=== PATIENT | male | born 1985 | race Caucasian/White ===

== ENCOUNTER 2018-07-16 02:13 | Inpatient (IN) | payer MEDICAID ==
[~2018-07-16] VITALS: Ht 170.2 cm; Wt 80.7 kg
--- NOTE | 2018-07-16 02:13 | NUR ---
BILATERAL LOWER BACK PAIN W/ TESTICULAR SWELLING, PAIN, GROIN PAIN X COUPLE OF DAYS, DENIES HEMATURIA. PATIENT IS TACHYCARDIC BUT OTHERWISE VSS NO ACUTE DISTRESS NOTED AT THIS TIME. PT IS ALERT AND ORIENTED X4 ABLE TO MAKE NEEDS KNOWN. SKIN WARM AND INTACT. WILL CONTINUE TO MONITOR FOR ANY CHANGES DURING THE SHIFT.
--- NOTE | 2018-07-16 02:14 | NUR ---
ER MD SPEARS AT BEDSIDE FOR EVAL
[2018-07-16] MEDS ORDERED: ONDANSETRON HCL/PF 4 MG/2 ML VIAL ONE (02:46)
[2018-07-16] MEDS ORDERED: MORPHINE SULFATE INJ 4 MG/ML DISP.SYRIN ONE (02:46)
[2018-07-16 02:52] LABS: BASOPHILS # (AUTO) 0.1 /CMM (0.0-0.2); BASOPHILS % (AUTO) 0.7 % (0.0-2.0); EOSINOPHILS % (AUTO) 4.7 % (0.0-6.0); HEMATOCRIT 40 % (39-51); HEMOGLOBIN 12.8 g/dL (13.5-17.5); LYMPHOCYTES # (AUTO) 2.1 /CMM (0.8-4.8); LYMPHOCYTES % (AUTO) 23.7 % (20.0-44.0); MEAN CORPUSCULAR HGB CONC 32 g/dl (31.0-36.0); MEAN CORPUSCULAR VOLUME 86 fL (80-96); MONOCYTES # (AUTO) 0.7 /CMM (0.1-1.30); MONOCYTES % (AUTO) 8.5 % (2.0-12.0); NEUTROPHILS # (AUTO) 5.4 /CMM (1.8-8.9); NEUTROPHILS % (AUTO) 62.4 % (43.0-81.0); PLATELET COUNT (AUTO) 262 /CMM (150-450); RDW COEFFICIENT OF VARIATION 15.3 (11.5-15.0); RED BLOOD CELL COUNT(AUTO) 4.63 MIL/uL (4.5-6.0); WHITE BLOOD COUNT (AUTO) 8.7 K/uL (4.3-11.0)
--- NOTE | 2018-07-16 02:52 | NUR ---
BLOOD SENT TO LAB WITH MEDICAL PSYCHOTHERAPIST
[2018-07-16] MEDS ORDERED: IV NS 0.9% 1,000 ML BAG IV ONE (03:00)
[2018-07-16] MEDS ORDERED: MORPHINE SULFATE INJ 2 MG/ML DISP.SYRIN IV ONE (03:00)
[2018-07-16] MEDS ORDERED: ONDANSETRON HCL/PF 4 MG/2 ML VIAL IVP ONE (03:00)
[2018-07-16 03:07] LABS: CALCIUM, SERUM 9.5 mg/dL (8.5-10.1); POTASSIUM 4.1 mmol/L (3.5-5.1)
[2018-07-16 03:16] LABS: ALBUMIN 3.6 g/dL (3.4-5.0); BILIRUBIN,DIRECT 0.1 mg/dL (0.0-0.2); BILIRUBIN,TOTAL 0.2 mg/dL (0.2-1.0); TOTAL PROTEIN, SERUM 7.8 g/dL (6.4-8.2)
--- NOTE | 2018-07-16 04:30 | NUR ---
US TECH AT BEDSIDE
--- NOTE | 2018-07-16 04:42 | NUR ---
DR. KHANG OLIVEIRA UROLOGY SPEAKING TO DR. SPEARS REGARDING POC.
--- NOTE | 2018-07-16 04:45 | NUR ---
ER AT [facility] TO EXPLAIN FINDINGS
--- NOTE | 2018-07-16 05:08 | NUR ---
CALLED RN SUP FOR MS BED.
--- NOTE | 2018-07-16 05:14 | NUR ---
CALLED [facility] FOR PANEL ADMISSION, DR. VERGARA PAGED. WAITING FOR CALL BACK.
--- NOTE | 2018-07-16 06:03 | NUR ---
REPORT GIVEN TO ELISEO
--- NOTE | 2018-07-16 06:30 | NUR ---
MS RN NOTES Received patient from ER via [facility] assisted with 1 staff. A/O X4, with patent peripheral IV line LAC #18, SL. With complaints of penile pain at minimal level 4/10. On NPO at this time. Belongings inventory done by SUSTAINABILITY MANAGER but patient refused his back pack to be checked. Patient preferred to be on his clothes, refused to wear hospital gown at this time. Kept on bed comfortable. Call light at bedside.
[2018-07-16] MEDS: IV D5/ 0.9% NACL 1,000 ML IV PRN ×2 (06:58→21:53)
[2018-07-16] MEDS ORDERED: ONDANSETRON HCL/PF 4 MG/2 ML VIAL IVP PRN (07:00)
[2018-07-16] MEDS ORDERED: ACETAMINOPHEN 650 MG/SUPP.RECT RC PRN (07:00)
--- NOTE | 2018-07-16 07:10 | NUR ---
MS RN NOTES Initiated peripheral IV fluid with D5NS @ 90ml/hr as ordered. Asleep on bed in Castaneda's position. Endorsed to the AM shift nurse RN [place].
[2018-07-16] MEDS ORDERED: HYDROMORPHONE 1 MG/1 ML DISP.SYRIN IV PRN (07:30)
[2018-07-16 08:00] VITALS: BP 112/72
--- NOTE | 2018-07-16 08:00 | NUR ---
MS RN AM NOTES RECEIVED PT ALERT AND ORIENTED X4.VERBALLY RESPONSIVE.SLEEPING COMFORTABLY BUT AROUSABLE.RESPIRATIONS NON LABORED IN ROOM AIR.ON NPO.WITH ONGOING IVF OF D5NS AT 90 L/HR INFUSING WELL TO RT AC.WITH TESTICULAR SWELLING SEEN AND CHECKED BY DR KHANG PRICE.DENIES ANY PAIN OR DISTRESS.CALL LIGHT PLACED WITHIN REACH.
--- NOTE | 2018-07-16 08:01 | NUR ---
DR KHANG PRICE,UROLOGIST CAME TO SEE THE PT AND EXPLAINED THE PROS AND CONS OF HAVING THE SCROTAL EXPLORATION,POSSIBLE RT ORCHIECTOMY VS ORCHIOPEXY.MADE 3 ATTEMPTS OF CONVINCING AND EXPLAINING THE RISKS AND BENEFITS OF HAVING THE SURGERY WITH DR KHANG PRICE EXPLAINING REPEATED 3X AT THE BEDSIDE ANSWERING PT'S CONCERNS BUT PT STILL INSISTS TO REFUSE.PT VERBALIZED FEAR OF GOING TO SLEEP DURING THE PROCEDURE.EXPLAINED THAT IT IS DUE TO THE EFFECT OF THE ANESTHESIA WHICH IS CLOSELY MONITORED FOR ANY SIDE EFFECTS SO HE WON'T FEEL THE PAIN DURING THE PROCEDURE.
[2018-07-16] MEDS: PANTOPRAZOLE 40 MG VIAL IV SCH (09:23)
[2018-07-16] MEDS: CEFTRIAXONE 1 G in IV D5W 50 ML IV SCH (09:23)
[2018-07-16] MEDS: KETOROLAC TROMETHAMINE INJ 30 MG/ML VIAL IV SCH ×3 (09:28→21:52)
[2018-07-16 16:00] VITALS: BP 123/76
--- NOTE | 2018-07-16 18:00 | NUR ---
PT RESTING IN BED SLEEPING COMFORTABLY BUT AROUSABLE DENYING ANY PAIN OR DISTRESS.TORADOL IV GIVEN IS EFFECTIVE.MADE BOWEL MOVEMENT TODAY.WITH ONGOING IVF OF D5NS AT 90ML/HR INFUSING WELL.ENCOURAGED TO AMBULATE ALONG THE HALLWAY AND NOT JUST STAY IN BED THE WHOLE DAY.CALL LIGHT PLACED WITHIN REACH.
--- NOTE | 2018-07-16 19:20 | NUR ---
RN MS OPENING NOTES RECEIVED PATIENT AWAKE ALERT AND ORIENTED X 4, ABLE TO MAKE NEEDS KNOWN , RESPIRATIONS EVEN AND UNLABORED WITH EQUAL RISE AND FALL OF CHEST. DENIES ANY PAIN AT THIS TIME, RIGHT AC # 18 G INTACT AND PATENT NO REDNESS,NO INFILTRATION PRESENT, IVF RUNNING ORDERED. ORIENTED TO STAFF AND CALL LIGHT KEPT WITHIN REACH,FLUIDS AND SNACKS OFFERED ALL NEEDS ATTENDED AT THIS TIME, TOILETING OFFERED, WILL CONTINUE TO MONITOR PATIENT REMAINS COMFORTABLE AT THIS TIME.
[2018-07-16 20:00] VITALS: BP 113/66
[2018-07-17] MEDS: KETOROLAC TROMETHAMINE INJ 30 MG/ML VIAL IV SCH ×3 (03:28→15:00)
--- NOTE | 2018-07-17 05:08 | NUR ---
RN MS NOTES PATIENT COMPLAINT OF RIGHT FA ITCHINESS, WHEN ASSESSED NOTED RIGHT FA WITH SLIGHT REDNESS SKIN IS INTACT, PER PATIENT STATES " FEELS LIKE IT COULD HAVE BEEN A BUG BITE." PICTURE TAKEN , ICE APPLIED. SKIN REMAINS INTACT TO SITE. WILL FOLLOW UP WITH MD TO NOTIFY OF FINDING.
--- NOTE | 2018-07-17 06:05 | NUR ---
RN MS NOTES CALLED TO NOTIFY CLINICAL SUPPORT TECH MD OF RIGHT FA POSSIBLE BUG BITE, AWAITING RESPONSE IF UNABLE TO REACH WILL CONTINUE TO MONITOR AND ENDORSE TO NEXT SHIFT FOR CONTINUITY OF CARE, SITE REMAINS ICED.SITE NOTED WITH DECREASED REDNESS, AND COOL TO TOUCH, PATIENT IS NOT SCRATCHING OR COMPLAINING OF ITCHINESS AT THIS TIME.
--- NOTE | 2018-07-17 06:24 | NUR ---
RN MS CLOSING NOTES PATIENT SLEEPING BUT EASILY AROUSABLE, ALERT AND ORIENTED X 4, ABLE TO MAKE NEEDS KNOWN , RESPIRATIONS EVEN AND UNLABORED WITH EQUAL RISE AND FALL OF CHEST. DENIES ANY PAIN AT THIS TIME, RIGHT AC # 18 G INTACT AND PATENT NO REDNESS,NO INFILTRATION PRESENT, IVF RUNNING ORDERED.CALL LIGHT KEPT WITHIN REACH,FLUIDS AND SNACKS OFFERED ALL NEEDS ATTENDED AT THIS TIME, TOILETING OFFERED, WILL CONTINUE TO MONITOR PATIENT REMAINS COMFORTABLE AT THIS TIME AND ENDORSE TO NEXT SHIFT. UPON REASSESSMENT NOTED DECREASED REDNESS TO RIGHT FA PER PATIENT STATES "POSSIBLE BUG BITE."
--- NOTE | 2018-07-17 06:28 | NUR ---
RN MS NOTES RECEIVED CALL BACK FROM DR.OLEG PENG FOR WOUND CONSULT TO ASSESS POSSIBLE BUG BITE.
--- NOTE | 2018-07-17 07:54 | NUR ---
RN NOTES PATIENT ASLEEP BUT EASILY AWAKEN, A/OX4, C/O SEVERE PAIN ON SCROTAL AREA, OFFERED PAIN MEDICATION AND WILL ADMINISTER. BREATHING EVEN AND UNLABORED, NO DISTRESS NOTED. IVF INFUSING AND TOLERATING WELL, KEPT COMFORTABLE, NEEDS ATTENDED, CALL LIGHT WITHIN REACH, WILL CONTINUE TO MONITOR.
[2018-07-17 08:00] VITALS: BP 116/70
[2018-07-17] MEDS: PANTOPRAZOLE 40 MG VIAL IV SCH (08:04)
[2018-07-17] MEDS: CEFTRIAXONE 1 G in IV D5W 50 ML IV SCH (08:05)
[2018-07-17] MEDS: IV D5/ 0.9% NACL 1,000 ML IV PRN (09:08)
[2018-07-17] MEDS ORDERED: NEOMY SULF/BACITRAC ZN/POLY 15 GM TUBE TP SCH (11:00)
[2018-07-17] MEDS ORDERED: IBUP-1953 PO (13:44)
[2018-07-17] MEDS ORDERED: LEVO750T21 PO (13:44)
--- NOTE | 2018-07-17 13:45 | NUR ---
RN NOTES PATIENT SPOKE WITH JUAN VALDEZ NP, AND DISCUSSED AFTER CARE WITHOUT HAVING ANY SURGERY. PATIENT VERBALIZED UNDERSTANDING AND AGREED TO GO HOME AND TAKE ANTIBIOTIC AND PAIN MEDICATION.
--- NOTE | 2018-07-17 15:30 | NUR ---
DISCHARGE NOTE JUAN VALDEZ MICROBIOLOGICAL LAB TECHNICIAN CAME AND DISCUSSED DISCHARGE PLANS AND CONTINUITY OF CARE AT HOME, AND NO SURGICAL INTERVENTION NEEDED AT THIS TIME. PATIENT A/OX4, BREATHING EVEN AND UNLABORED, NO DISTRESS NOTED, DENIES PROBLEM WITH URINATION, DENIES PAIN OR DISCOMFORT AT THIS TIME, INFLUENZA VACCINE GIVEN ON RD, CONSENT GIVEN BY THE PATIENT. SKIN ASSESSMENT COMPLETED, SKIN DRY AND INTACT, STILL NOTED WITH MILD SWELLING ON RIGHT FOREARM, PHOTOS UP TO DATE, WOUND TREATMENT RENDERED, TRIPLE ANTIBIOTIC APPLIED TO RIGHT FOREARM AND BLE SCABS. PATIENT RECEIVED DISCHARGE INSTRUCTIONS AND VERBALIZED UNDERSTANDING. FAMILY AT BEDSIDE. DISCHARGE PAPERWORKS SIGNED. PRESCRIPTION PROVIDED AND EXPLAINED MEDICATIONS USE AND SIDE EFFECTS. PATIENT'S NEEDS ATTENDED TO AND MET, PERIPHERAL IV REMOVED, APPLIED GAUZE AND TAPE, BELONGINGS RECONCILED AND COMPLETE, REFUSED TO GO THROUGH THE BACKPACK. PATIENT LEFT THE FACILITY IN STABLE CONDITION ACCOMPANIED BY FAMILY MEMBERS.
== END 2018-07-17 15:15 | disposition home or self-care (01) | DRG 501 ==
LOC: ER 02:20 → MED 06:01
PROVIDERS: ADMIT Internal Medicine; ATTEND Internal Medicine
DX: N44.00 Torsion of testis, unspecified (principal); F17.210 Nicotine dependence, cigarettes, uncomplicated; F39 Unspecified mood [affective] disorder; L02.413 Cutaneous abscess of right upper limb; S80.922A Unspecified superficial injury of left lower leg, initial encounter; S80.921A Unspecified superficial injury of right lower leg, initial encounter; Y33.XXXA Other specified events, undetermined intent, initial encounter; Y92.89 Other specified places as the place of occurrence of the external cause
CPT/HCPCS: 36415; 76870-TC; 80048-TC; 80076-TC; 83690-TC; 85025-TC; 87081-TC; A4606; C9113; G0378; J0696; J1170; J1885; J2270; J2405; J7030; J7042; J7060; Q2036; Z7610